=== PATIENT | male | born 1990 | race Two or more races ===

== ENCOUNTER 2025-11-02 01:19 | Emergency (ER) | payer MEDICAID, SELFPAY ==
[2025-11-02 01:29] VITALS: BP 154/102; PULSE 102; RESP 18; TEMP 36.9; O2SAT 95; BMI 45.8
--- NOTE | 2025-11-02 01:38 | XR_ITS ---
Examination: CT soft tissue neck, without contrast. 2-D sagittal reconstructions. 2-D coronal reconstructions. 3-D reconstructions. Date and time of exam: November 02, 2025, 0245 hours INDICATIONS: Patient swallowed a fishbone October 31, 2025 CTDI: vol (mGy): 18.9 DLP: (mGycm): 532 Technique: Multiple 1.25 mm axial sections of the soft tissue neck have been obtained. 2-D sagittal and coronal reconstructions have been obtained. 3-D reconstructions have been obtained. Low dose protocols were performed. One or more of the following dose reduction techniques were used; automated exposure control, adjustment of the mA and/or KV according to patient size, use of iterative reconstruction technique. Findings: Maxillary antra are clear Symmetrical nasopharynx oropharynx No opaque foreign body depicted Esophagus is not distended Tracheal airway appears clear Lung apices clear No pathologic cervical lymphadenopathy Normal epiglottis IMPRESSION: No opaque foreign body depicted
[2025-11-02] MEDS: GLUCAGON INJ 1 MG VIAL IM (01:53)
--- NOTE | 2025-11-02 04:02 | PRELIM_ITS ---
CT scan of the neck without intravenous contrast (axial sections with sagittal and coronal reformats): November 02, 2025 at 0245 hours Clinical History: Foreign body. Comparison: None available at the time of this report. Findings: The nasopharynx, oropharynx, hypopharynx, supraglottic and infraglottic larynx, vocal cords and upper trachea are unremarkable. The epiglottis and aryepiglottic folds appear unremarkable. The superficial soft tissues of the neck are unremarkable. The osseous structures are unremarkable. There is no evidence of foreign body. Impression: Unremarkable CT scan of the neck on this noncontrast study. No evidence of foreign body. Report Electronically Signed By: Kolby Bacon 11/02/2025 4:01:50 AM [EST]
[2025-11-02 04:14] VITALS: RESP 16
--- NOTE | 2025-11-02 04:21 | EDNOTE_ITS ---
ED Dental RME/HPI General Chief complaint: General Adult/Misc Complain Stated complaint: SWALLOWED A FISH BONE Time Seen by Provider: 11/02/25 01:21 Arrival date/time: 11/02/25 01:19 This is a case of 35-year-old male with no medical history came in in the emergency room due to foreign body sensation on the throat patient states that he accidentally swallowed a fishbone and since then she felt something stuck on his throat no drooling of saliva patient is still able to swallow his saliva and solid and liquid foods persistent of the symptoms this patient decided to sought consult here in the emergency room Limitations: no limitations Related Data Previous Rx's ?Medication ?Instructions ?Recorded lidocaine HCl 2 % mucosal solution 10 ml PO Q4HR PRN s orethroat #100 11/02/25 (Lidocaine Viscous) mL Allergies Allergy/AdvReac Type Severity Reaction Status Date / Time No Known Allergies Allergy Verified 11/02/25 01:20 Review of Systems Review of Systems Systems Reviewed: All systems reviewed, normal except as documented Constitutional Constitutional: Reports system reviewed and no additional complaints, except as documented and Reports as per HPI ENT Ears, Nose, Mouth, and Throat: Reports system reviewed and no additional complaints, except as documented and Reports as per HPI Cardiovascular Cardiovascular: Reports system reviewed and no additional complaints, except as documented and Reports as per HPI Respiratory Respiratory: Reports system reviewed and no additional complaints, except as documented and Reports as per HPI Gastrointestinal Gastrointestinal: Reports system reviewed and no additional complaints, except as documented and Reports as per HPI Musculoskeletal Musculoskeletal: Reports system reviewed and no additional complaints, except as documented and Reports as per HPI Neurologic Neurologic: Reports system reviewed and no additional complaints, except as documented and Reports as per HPI Past Medical History Social History SMOKING STATUS: Never smoker ED Exam General Limitations: Present no limitations General appearance: Present alert, in no apparent distress and other (Patient is awake alert oriented not in distress nontoxic looking well-hydrated well-nourished) Head Head exam: Present atraumatic, normocephalic and normal inspection Eye Eye exam: Present normal appearance, PERRL and EOMI ENT ENT exam: Present normal exam, normal oropharynx, mucous membranes moist and other (Noted pharynx were red bilateral tonsils were not swollen no exudate no redness uvula midline no drooling of saliva no muffled voice no hot water voice patient can speak full sentences) Neck Neck exam: Present normal inspection, full ROM and trachea midline; Absent tenderness, meningismus, lymphadenopathy or thyromegaly Chest Chest inspection: Present normal inspection and symmetric chest wall rise; Absent tenderness Respiratory Respiratory exam: Present normal lung sounds bilaterally and other; Absent respiratory distress, wheezes, stridor, accessory muscle use or prolonged expiratory phase Cardiovascular Cardiovascular exam: Present regular rate, normal rhythm and normal heart sounds; Absent bradycardia, tachycardia, irregular rhythm, systolic murmur or diastolic murmur Abdominal Exam Abdominal exam: Present soft and normal bowel sounds; Absent distention, tenderness, guarding, rebound, rigidity, diminished bowel sounds, hyperactive bowel sounds, hypoactive bowel sounds or organomegaly Extremities Exam Extremities exam: Present normal inspection and full ROM Back Exam Back exam: Present normal inspection and full ROM Neurological Exam Neurological exam: Present alert, oriented X3, CN II-XII intact, normal gait and reflexes normal; Absent motor sensory deficit Psychiatric Psychiatric exam: Present normal affect and normal mood Skin Skin exam: Present warm, dry, intact, normal color and other (Excellent skin turgor) Course Quality Measures none Orders Category Date Time Status CT soft tissue neck wo con Stat Exams 11/02/25 01:38 Taken Glucagon Inj Med 11/02/25 01:38 Discontinued 1 mg IM X1 ONE Vital Signs Vital signs: Vital Signs Temperature 98.4 F 11/02/25 01:29 Pulse Rate 102 H 11/02/25 01:29 Respiratory Rate 18 11/02/25 01:29 Blood Pressure 154/102 H 11/02/25 01:29 Pulse Oximetry (%) 95 11/02/25 01:29 Oxygen Delivery Method Room Air 11/02/25 01:29 Oxygen saturation is 95% in room air Dental / Oral MDM Narrative MDM Narrative:: This is a case of 35-year-old male with no medical history came in in the emergency room due to foreign body sensation on the throat patient states that he accidentally swallowed a fishbone and since then she felt something stuck on his throat no drooling of saliva patient is still able to swallow his saliva and solid and liquid foods persistent of the symptoms this patient decided to sought consult here in the emergency room patient is awake alert oriented not in distress nontoxic looking well-hydrated well-nourished patient throat exam showed redness pharynx bilateral tonsils worse no swelling no redness no exudate no peritonsillar abscess no drooling of saliva no hoarseness of voice no muffled voice no foreign body seen on the throat the rest of the HEENT exam is normal and unremarkable lungs sound is clear no crackles no rales no retraction no stridor no wheezing patient CT scan is normal no foreign body seen patient was given glucagon blood sugar was rechecked first and it was normal after 1 hour patient was reassessed patient states that there is a improvement of symptoms thus patient can be discharged home with stable condition patient will follow-up with PCP in 2 days for reevaluation and for any worsening symptoms or any emergent concern return precaution in the ER is advised Patient was discharged with comfortable condition walking with stable gait. Patient verbalized no further complains explained diagnosis and answered patient question. Patient is comfortable with the proposed management plan including the need to follow up with his/her primary care physician and any specialist if applicable Discussed patient for any urgent condition or worsening sx, He/She needed to go to emergency room immediately or call 911. Patient acknowledge the responsibility to follow up as instructed and to monitor her/his symptoms. For any persistence of the symptoms for more than 3-5 days return precaution advised. Discussed the result of the test and was given printed discharge instruction Patient data External records reviewed:: [facility] previous records Clinical information provided by:: patient Social determinants that could affect healthcare access:: none Patient has the following chronic illnesses:: None How is presenting disease/condition affected by chronic disease/condition?: no chronic disease Evaluation data The following diagnostics were reviewed and interpreted by me:: radiology exam(s) Lab and/or radiology exams considered but not ordered:: Reviewed Interpretation Summary: Reviewed Medications / Prescriptions Medications or Prescriptions considered but not ordered:: Given Medication administrations:: Medication Administration History Discontinued Medications Glucagon (Glucagon Inj 1 Mg Vial) 1 mg IM X1 ONE Stop: 11/02/25 01:39 Last Admin: 11/02/25 01:53 Dose: 1 mg Documented By: CVL Given Consultations Consultation(s) initiated? (list below): No Diagnosis Dental Differential Diagnosis: gingival abscess, dental caries, toothache, dental abscess, fracture of tooth and aphthous ulcer Most likely diagnosis given after review of the tests above:: Foreign body sensation in throat pharyngeal abrasion Admission Indicated Admission indicated?: not indicated Explain why admission is indicated or not indicated:: Not indicated Admission Request Was there a request for admission?: No Admission Attestation Admission request attestation: Not indicated Disposition Plan Disposition Plan: Discharge Discharge Attestation Discharge Attestation: The patient and all family members were given an opportunity to ask questions and understood the discharge instructions. Discharge instructions specifically effects, indications for sooner follow up or return to the emergency department, and the expected course of current diagnosis. Patient condition: Stable Discharge Plan Plan Patient Disposition: HOME (Self Care) Patient condition on transfer: Stable Prescriptions/Referrals Prescriptions/Med Rec: New lidocaine HCl [Lidocaine Viscous] 2 % solution 10 ml PO Q4HR PRN (Reason: sorethroat) Qty: 100 0RF Referrals: No Primary/Family,Physician [Primary Care Provider] - In 1 week Problem List Clinical Impression: Foreign body sensation in throat, Abrasion of pharynx Patient/Caregiver Discharge Instructions Education Materials: ED Pharyngeal Abrasion Additional Instructions: Follow-up with your primary care physician in 2 days for reevaluation worsening symptoms or any emergent concerns such as drooling of saliva throat pain follow- up with your primary care physician in 2 days for reevaluation worsening symptoms or any emergent concern call 911 or go to the nearest emergency room warm saline gargle is advised take your medication as directed Print Language: Gabonese Stand Alone Forms: Gwen Award Info., Patient Portal Info Letter PA/DENISE Supervising Physician JHON/DENISE Supervising Physician: Dr. Harrison
== END 2025-11-02 04:15 | disposition home or self-care (01) ==
PROVIDERS: Emergency Provider Emergency Medicine
DX: R09.A2 Foreign body sensation, throat (principal); S10.11XA Abrasion of throat, initial encounter; X58.XXXA Exposure to other specified factors, initial encounter
CPT/HCPCS: 70490; 96372; 99283; J1611